=== PATIENT | female | born 1970 | race Caucasian/White ===

== ENCOUNTER 2018-11-15 07:15 | Day surgery (SDC) | payer OTHER ==
[~2018-11-15 07:15] MED LIST: Lactated Ringers 1,000 ML IV SCH; Lidocaine 1%/Sod Bicarbonate in NS 8.4% 1 ML Syringe IDERM PRN; Propofol 200 MG/20 ML SDV ONE; Sodium Chloride 0.9% 10 ML Syringe FLUSH PRN
[2018-11-15] MEDS ORDERED: Midazolam 1 MG/ML 2 ML SDV ONE (07:16)
[2018-11-15] MEDS ORDERED: fentaNYL 100 MCG/2 ML SDV ONE ×2 (07:16→08:44)
[2018-11-15] MEDS ORDERED: Rocuronium 50 MG/5 ML Vial ONE (07:16)
[2018-11-15] MEDS ORDERED: Dexamethasone 4 MG/ML 5 ML MDV ONE (07:23)
[2018-11-15] MEDS ORDERED: Ondansetron 4 MG/2 ML SDV ONE (07:23)
[2018-11-15] MEDS ORDERED: Ketorolac 30 MG/ML SDV ONE (07:23)
[2018-11-15] MEDS ORDERED: Lidocaine 1% with EPINEPHrine 1:100,000 20 ML MDV ONE (07:37)
[2018-11-15] MEDS ORDERED: Bupivacaine 0.5%/EPINEPHrine 1:200,000 50 ML MDV ONE (07:37)
--- NOTE | 2018-11-15 07:52 | PCM.PREANE ---
Preanesthetic Assessment - Anesthesia/Transfusion/Family Hx Anesthesia History: Prior Anesthesia Without Reaction Family History of Anesthesia Reaction: No Transfusion History: No Prior Transfusion(s) Intubation History: Unknown - Review of Systems General: No Symptoms Pulmonary: Shortness of Breath, Wheezing Cardiovascular: No Symptoms Gastrointestinal: No Symptoms Neurological: No Symptoms Other: Reports: Diabetes - Physical Assessment NPO Status Date: 11/14/18 NPO Status Time: 08:30 Height: 19.2 m Weight: 62.142 kg ASA Class: 2 Mental Status: Alert & Oriented x3 Airway Class: Mallampati = 2 Dentition: Reports: Broken Tooth/Teeth, Missing Tooth/Teeth ROM/Head Extension: Full Lungs: Rales, Rhonchi Cardiovascular: Regular Rate, Regular Rhythm - Allergies Allergies/Adverse Reactions: Allergies Allergy/AdvReac Type Severity Reaction Status Date / Time celecoxib [From Celebrex] Allergy Cannot Verified 11/14/18 12:35 Remember - Blood Blood Available: No Product(s) Available: None - Acknowledgements Anesthesia Type Planned: General Anesthesia Pt an Appropriate Candidate for the Planned Anesthesia: Yes Alternatives and Risks of Anesthesia Discussed w Pt/Guardian: Yes Pt/Guardian Understands and Agrees with Anesthesia Plan: Yes Additional Comments: hypertension, treated-- used marijuana-- right shoulder pain = etiology uncertain, cocaine, methamphetamines prior to retirement.--right shoulder pain etiology unknown PreAnesthesia Questionnaire HEENT History: Reports: Impaired Vision Cardiovascular History: Reports: High Cholesterol, Hypertension Respiratory History: Reports: None Other Gastrointestinal History: Gallstones Genitourinary History: Reports: None Musculoskeletal History: Reports: Arthritis Other Musculoskeletal History: Chronic knee pain Neurological History: Reports: None Psychiatric History: Reports: Addiction, Anxiety, Psychosis Other Psychiatric History: Insomnia, Substance abuse Endocrine/Metabolic History: Reports: Diabetes, Type II Hematologic History: Reports: None Immunologic History: Reports: None Oncologic (Cancer) History: Reports: None Dermatologic History: Reports: None - Past Surgical History Head Surgeries/Procedures: Reports: None HEENT Surgical History: Reports: None Cardiovascular Surgical History: Reports: None Respiratory Surgical History: Reports: None GI Surgical History: Reports: None Female Surgical History: Reports: Hysterectomy Neurological Surgical History: Reports: None Musculoskeletal Surgical History: Reports: None - SUBSTANCE USE Smoking Status *Q: Former Smoker Recreational Drug Use History: Yes Recreational Drug Type: Reports: Cocaine, Marijuana/Hashish, Methamphetamine - HOME MEDS Home Medications: Home Meds Hydrochlorothiazide [Microzide] 12.5 mg PO DAILY 11/14/18 [History] Ibuprofen 600 mg PO BID 11/14/18 [History] Lisinopril 20 mg PO DAILY 11/14/18 [History] Naloxone HCl [Narcan] 4 mg NS ASDIRECTED PRN 11/14/18 [History] Omeprazole 20 mg PO DAILY 11/14/18 [History] Sennosides/Docusate Sodium [Senna-S] 2 tab PO QAM 11/14/18 [History] metFORMIN [Glucophage] 500 mg PO BIDMEALS 11/14/18 [History] - CURRENT (IN HOUSE) MEDS Current Meds: Current Medications Lactated Ringer's (Ringers, Lactated) 1,000 mls @ 125 mls/hr IV ASDIRECTED SREEDHAR Stop: 11/15/18 23:00 Lidocaine/Sodium Bicarbonate (Buffered Lidocaine 1% In Ns 8.4%) 0.25 ml IDERM ONETIME PRN PRN Reason: Prior to IV Start Stop: 11/15/18 18:00 Sodium Chloride (Saline Flush) 10 ml FLUSH ASDIRECTED PRN PRN Reason: Keep Vein Open Stop: 11/15/18 18:00 Discontinued Medications Bupivacaine HCl/Epinephrine Bitart (Marcaine 0.5%/Epinephrine 1:200,000) Confirm Administered Dose 50 ml .ROUTE .STK-MED ONE Stop: 11/15/18 07:38 Dexamethasone (Dexamethasone) Confirm Administered Dose 20 mg .ROUTE .STK-MED ONE Stop: 11/15/18 07:24 Fentanyl (Sublimaze) Confirm Administered Dose 100 mcg .ROUTE .STK-MED ONE Stop: 11/15/18 07:17 Ketorolac Tromethamine (Toradol) Confirm Administered Dose 30 mg .ROUTE .STK- MED ONE Stop: 11/15/18 07:24 Lidocaine/Epinephrine (Xylocaine 1% With Epinephrine 1:100,000) Confirm Administered Dose 20 ml .ROUTE .STK-MED ONE Stop: 11/15/18 07:38 Midazolam HCl (Versed 1 Mg/Ml) Confirm Administered Dose 2 mg .ROUTE .STK-MED ONE Stop: 11/15/18 07:17 Ondansetron HCl (Zofran) Confirm Administered Dose 4 mg .ROUTE .STK-MED ONE Stop: 11/15/18 07:24 Propofol (Diprivan 20 Ml) Confirm Administered Dose 200 mg .ROUTE .STK-MED ONE Stop: 11/15/18 07:16 Rocuronium [place] (Zemuron) Confirm Administered Dose 50 mg .ROUTE .STK-MED ONE Stop: 11/15/18 07:17
[2018-11-15] MEDS ORDERED: Iopamidol 755 MG/ML 50 ML Bottle ONE (08:00)
[2018-11-15] MEDS ORDERED: Scopolamine 1.5 MG Transdermal Patch TRDERM PRN (08:18)
[2018-11-15] MEDS ORDERED: Ampicillin/Sulbactam Na 3 GM in Sodium Chloride 0.9% 100 ML IV ONE (08:35)
[2018-11-15] MEDS ORDERED: HYDROmorphone 0.5 MG/0.5 ML Syringe ONE ×2 (08:47)
[2018-11-15] MEDS ORDERED: ePHEDrine/Normal Saline 25 MG/5 ML Syringe ONE (09:05)
[2018-11-15] MEDS ORDERED: Sodium Chloride 0.9% 50 ML SDV ONE (09:28)
--- NOTE | 2018-11-15 10:31 | PCM.OPNOTE ---
- General Post-Op/Procedure Note Date of Surgery/Procedure: 11/15/18 Operative Procedure(s): lap alyson Pre Op Diagnosis: gall stones Post-Op Diagnosis: Same Anesthesia Technique: General ET Tube, MAC Primary Surgeon: Tito Leal EBL in mLs: 10 Complications: None Condition: Good
[2018-11-15] MEDS ORDERED: Ondansetron 4 MG/2 ML SDV IVPUSH PRN (10:47)
[2018-11-15] MEDS ORDERED: fentaNYL 100 MCG/2 ML SDV IVPUSH PRN (10:47)
--- NOTE | 2018-11-15 10:48 | PCM.POSTAN ---
POST ANESTHESIA ASSESSMENT - MENTAL STATUS Mental Status: Alert - RESPIRATORY Respiratory Status: Respiratory Rate WNL, Airway Patent, O2 Saturation Stable, Supplemental Oxygen - CARDIOVASCULAR CV Status: Pulse Rate WNL - GASTROINTESTINAL GI Status: No Symptoms - POST OP HYDRATION Hydration Status: Adequate & Stable
[2018-11-15] MEDS ORDERED: Acetaminophen/Codeine 300-30 MG Tab PO PRN (11:07)
--- NOTE | 2018-11-15 12:07 | OR ---
DATE OF OPERATION: 11/15/2018 SURGEON: Tito Leal MD PREOPERATIVE DIAGNOSIS: Cholelithiasis. POSTOPERATIVE DIAGNOSIS: Cholelithiasis. OPERATION PERFORMED: Laparoscopic cholecystectomy. FINDINGS: Stones in the gallbladder. ESTIMATED BLOOD LOSS: About 10 mL. DESCRIPTION OF PROCEDURE: The patient taken to the operating room, placed in a supine position, connected to monitoring equipment, given a general anesthetic and intubated. Antibiotics were given, and the abdomen was prepped with chlorhexidine prep and draped off in a sterile fashion. An incision was made just below the umbilicus, and using a 5 mm trocar OptiPort attempt to get into the abdominal cavity was frustrated by a thick scar. This site was abandoned, one above the umbilicus was chosen, and incision was made, and using a 5 mm OptiPort was able to enter the abdominal cavity without problem. Pneumoperitoneum was established, and a 5 mm 0-degree camera was then used. The abdominal cavity was scanned and showing adhesions from previous surgical incision in the lower midline below the umbilicus. Gallbladder was in right upper quadrant. A 5 mm trocar placed in the epigastric position, one right lateral and right midclavicular line just below the flare of the costal margin. Gallbladder was retracted in a cephalad position. The patient was placed in reverse Trendelenburg and leftward tilt, and the fundus of the gallbladder retracted in caudal fashion. Calot triangle was dissected out, and a clip placed on the cystic duct-Karolina pouch junction. Two clips on the artery and the artery was cut. X-ray was not done. Two clips placed on the cystic duct, cystic duct was cut. The gallbladder was then dissected from its attachments to the liver, placed in an Endobag and removed from the epigastric port. The camera was reinserted, showed some bleeding from the epigastric port. This was opened up, and this bleeding secured with electrocautery, and the port closed with a 0 Vicryl suture. The camera was reinserted, and the area was irrigated, and 2 places on the gallbladder bed were coagulated and excellent hemostasis thus established. Pneumoperitoneum was removed along with the ports and the skin of each port closed with subdermal 4-0 Dexon suture, and the epigastric port subcuticular tissue was closed with interrupted 3-0 Vicryl suture. Each port was then anesthetized with Xylocaine and Marcaine. The patient tolerated the procedure, sent to recovery room in a stable condition. ANESTHESIA: MMODAL /[id number]
== END 2018-11-15 12:35 | disposition home or self-care (01) ==
LOC: JD.SDS 07:15
PROVIDERS: ATTEND Surgery
DX: K80.10 Calculus of gallbladder with chronic cholecystitis without obstruction (principal); K21.9 Gastro-esophageal reflux disease without esophagitis; I10 Essential (primary) hypertension; E11.9 Type 2 diabetes mellitus without complications; F41.9 Anxiety disorder, unspecified; F15.10 Other stimulant abuse, uncomplicated; Z79.891 Long term (current) use of opiate analgesic; Z79.84 Long term (current) use of oral hypoglycemic drugs; Z79.899 Other long term (current) drug therapy; Z87.891 Personal history of nicotine dependence; Z88.6 Allergy status to analgesic agent
CPT/HCPCS: 00790; 82962; A9270-GY; J1100; J1170; J1885; J2250; J2405; J2704; J3010; J3490; J7050; J7120; Q9967